=== PATIENT | female | born 1975 | race Caucasian/White ===

== ENCOUNTER → 2020-10-09 | Emergency (ER) | payer MEDICARE, OTHER ==
[~2020-10-09] VITALS: Ht 175.3 cm; Wt 483.5 kg
[~2020-10-09] MED LIST: MORPHINE SULFATE INJ 2 MG/ML DISP.SYRIN IM ONE; MORPHINE SULFATE INJ 4 MG/ML DISP.SYRIN ONE; OXYC-128 PO
--- NOTE | 2020-10-09 18:40 | NUR ---
The patient bibs for c/o sinus pressure, s/p sinus surgery saturday10/07/20, 02/12 pain scale. The patient noted with steri stripes on both sides of the nose. No redness around the nose. No bleeding/discharge from the nose. Denies SOB. Respiration regular and unlabored. Oxygen saturation WNL. Will continue to monitor the patient.
--- NOTE | 2020-10-09 19:05 | NUR ---
Rec'd report from YAEL Grier for arjun
--- NOTE | 2020-10-09 19:28 | NUR ---
Patient discharged to home in stable condition. Written and verbal after care instructions given. Patient verbalizes understanding of instruction.Pt ambulatory with a steady gait
[2020-10-09 19:29] VITALS: BP 119/75
== END | disposition home or self-care (01) ==
LOC: ER 18:06
DX: G89.18 Other acute postprocedural pain (principal); F32.9 Major depressive disorder, single episode, unspecified; F41.9 Anxiety disorder, unspecified; Z98.890 Other specified postprocedural states; Z91.040 Latex allergy status; Z88.1 Allergy status to other antibiotic agents
CPT/HCPCS: 96372; 99283; J2270

== ENCOUNTER 2020-11-06 11:43 | Emergency (ER) | payer MEDICARE, OTHER ==
[~2020-11-06] VITALS: Ht 175.3 cm; Wt 77.1 kg
[~2020-11-06 11:43] MED LIST changes: -MORPHINE SULFATE INJ 2 MG/ML DISP.SYRIN IM ONE; -MORPHINE SULFATE INJ 4 MG/ML DISP.SYRIN ONE
[2020-11-06 11:47] VITALS: BP 115/76
--- NOTE | 2020-11-06 11:50 | NUR ---
The patient bibs for c/o congestion and runny nose x 1 week. "concern infection". In room and denies sob. respiration regular and unlabored. patient afebrile. will continue to monitor.
[2020-11-06] MEDS ORDERED: CLIN300C12 PO (11:53)
--- NOTE | 2020-11-06 11:54 | NUR ---
Patient discharged to home in stable condition. Written and verbal after care instructions given. Patient verbalizes understanding of instruction.
== END 2020-11-06 11:55 | disposition home or self-care (01) ==
LOC: ER 11:48
DX: J32.9 Chronic sinusitis, unspecified (principal); F32.9 Major depressive disorder, single episode, unspecified; F41.9 Anxiety disorder, unspecified; Z91.040 Latex allergy status; Z88.1 Allergy status to other antibiotic agents; Z91.048 Other nonmedicinal substance allergy status; Z98.890 Other specified postprocedural states

== ENCOUNTER 2021-07-20 09:01 | Emergency (ER) | payer MEDICARE, OTHER ==
[~2021-07-20] VITALS: Ht 170.2 cm; Wt 77.6 kg
[~2021-07-20 09:01] MED LIST changes: +CLIN300C12 PO
--- NOTE | 2021-07-20 09:05 | NUR ---
PATIENT PLACED ON BED. CHANGED TO GOWN. UNABLE TO PROVIDE URINE SAMPLE AT THIS TIME, AWAITING MD PARNELL.
--- NOTE | 2021-07-20 09:25 | NUR ---
IV SALINE STABLISHED. BLOOD DRAWN FOR LAB. SEEN BY DR CARRIZALES AWAITING ORDERS.
[2021-07-20] MEDS ORDERED: MORPHINE SULFATE INJ 4 MG/ML DISP.SYRIN ONE ×2 (09:26→12:36)
[2021-07-20] MEDS ORDERED: PANTOPRAZOLE 40 MG VIAL ONE (09:27)
[2021-07-20] MEDS ORDERED: ONDANSETRON HCL/PF 4 MG/2 ML VIAL ONE (09:27)
[2021-07-20] MEDS ORDERED: MORPHINE SULFATE INJ 2 MG/ML DISP.SYRIN IV ONE ×2 (09:30→12:30)
[2021-07-20] MEDS ORDERED: PANTOPRAZOLE 40 MG VIAL IV ONE (09:30)
[2021-07-20] MEDS ORDERED: IV NS 0.9% 1,000 ML BAG IV ONE (09:30)
[2021-07-20] MEDS ORDERED: ONDANSETRON HCL/PF 4 MG/2 ML VIAL IVP ONE (09:30)
--- NOTE | 2021-07-20 09:55 | NUR ---
MEDICATED ORDERED, IVF INFUSING, U/S DONE
[2021-07-20 10:08] LABS: BASOPHILS % (AUTO) 0.3 % (0.0-2.0); EOSINOPHILS % (AUTO) 1.3 % (0.0-6.0); HEMATOCRIT 38 % (33-45); HEMOGLOBIN 12.6 g/dL (11.5-14.8); LYMPHOCYTES # (AUTO) 0.4 K/uL (0.8-4.8); LYMPHOCYTES % (AUTO) 4.5 % (20.0-44.0); MEAN CORPUSCULAR HGB CONC 33 g/dl (31.0-36.0); MEAN CORPUSCULAR VOLUME 88 fL (82-100); MONOCYTES # (AUTO) 0.4 K/uL (0.1-1.30); NEUTROPHILS # (AUTO) 7.5 K/uL (1.8-8.9); NEUTROPHILS % (AUTO) 88.9 % (43.0-81.0); PLATELET COUNT (AUTO) 156 K/uL (150-450); RED BLOOD CELL COUNT(AUTO) 4.31 MIL/uL (4.0-5.2); WHITE BLOOD COUNT (AUTO) 8.4 K/uL (4.3-11.0)
--- NOTE | 2021-07-20 10:23 | NUR ---
FOLLOW UP PATIENT FOR URINE SAMLE UNABLE THIS TIME
--- NOTE | 2021-07-20 10:33 | NUR ---
URINE SAMPLE SENT TO THE LAB.
--- NOTE | 2021-07-20 10:47 | NUR ---
[facility]. CALLED HEMOLIZED SAMPLE. [employer] MECH[employer]IC. WILL DRAW COLLECT NEW ONE.
--- NOTE | 2021-07-20 10:57 | NUR ---
SWIMMING POOL SERVICER. AT BED SIDE FOR REDRAW BLOOD SAMPLE.
[2021-07-20 11:15] LABS: BILIRUBIN,URINE NEGATIVE (NEGATIVE); COLOR,URINE YELLOW (YELLOW); LEUKOCYTE ESTERASE ,URINE NEGATIVE (NEGATIVE); NITRITE, URINE NEGATIVE (NEGATIVE); PROTEIN,URINE NEGATIVE (NEGATIVE); UGLUCOSE NEGATIVE (NEGATIVE); UROBILINOGEN,URINE 0.2 EU/dL (0.2)
--- NOTE | 2021-07-20 11:36 | NUR ---
PATIENT IS BACK FROM THE CT SCAN.
[2021-07-20 11:50] LABS: BACTERIA,URINE None seen /HPF (None Seen); SQUAMOUS EPITHELIAL CELL,UR Few /HPF (None Seen); URINE AMORPHOUS PHOSPHATES Many /HPF (None Seen)
[2021-07-20] MEDS ORDERED: CEPH500C2 PO (12:21)
[2021-07-20] MEDS ORDERED: PANT20TA2 PO (12:21)
[2021-07-20] MEDS ORDERED: DICY10CA37 PO (12:21)
[2021-07-20] MEDS ORDERED: DICYCLOMINE HCL INJ 20 MG/2 ML AMPUL IM ONE ×2 (12:30)
[2021-07-20] MEDS ORDERED: MAG HYDROX/AL HYDROX/SIMETH 30 ML UDC PO ONE (12:30)
[2021-07-20] MEDS ORDERED: LIDOCAINE VISCOUS 2% UD 15 ML UDC MM ONE (12:30)
[2021-07-20 12:51] LABS: ALBUMIN 3.5 g/dL (3.4-5.0); BILIRUBIN,DIRECT 0.2 mg/dL (0.0-0.2); BILIRUBIN,TOTAL 0.8 mg/dL (0.2-1.0); CALCIUM, SERUM 7.6 mg/dL (8.5-10.1); CREATININE 0.8 mg/dL (0.6-1.3); POTASSIUM 4.8 mmol/L (3.5-5.1); TOTAL PROTEIN, SERUM 6.5 g/dL (6.4-8.2)
[2021-07-20 13:45] VITALS: BP 110/70
--- NOTE | 2021-07-20 13:53 | NUR ---
IV removed. Catheter intact and site benign. Pressure and 4x4 applied to site. No bleeding noted.Patient discharged to WAITING ROOM WHERE MOM IS WATING in stable condition. Written and verbal after care instructions given. Patient verbalizes understanding of instruction.
== END 2021-07-20 14:06 | disposition home or self-care (01) ==
LOC: ER 09:02
DX: R10.13 Epigastric pain (principal); F32.A Depression, unspecified; F41.9 Anxiety disorder, unspecified; Z98.890 Other specified postprocedural states; Z88.1 Allergy status to other antibiotic agents; Z91.040 Latex allergy status; Z91.048 Other nonmedicinal substance allergy status
CPT/HCPCS: 36415; 74176; 76705; 80048; 80076; 81001; 82962; 83690; 84703; 85025; 96361; 96372; 96374; 96375; 96376; 99285; C9113; J0500; J2270 ×2; J2405; J7030